=== PATIENT | female | born 1990 | race Caucasian/White ===

== ENCOUNTER → 2017-03-26 | Outpatient (CLI) | payer BC, OTHER ==
[2017-03-26 08:37] LABS: CH 30.4; HCT 38.8 % (34.0-46.0); HDW 2.34; HGB 12.5 gm/dL (11.4-16.0); MCH 29.8 pg (25.0-35.0); MCHC 32.2 g/dL (31.0-37.0); MCV 92.6 fL (80.0-100.0); Mean Platelet Volume 9.1; RBC 4.18 m/uL (3.80-5.40); WBC 9.6 k/uL (3.8-10.6)
[2017-03-26 08:55] LABS: Glucose 81 mg/dL (74-99); Non-African American GFR(MDRD) >60 (>60 ml/min/1.73 sqM)
[2017-03-26 09:24] LABS: Hepatitis B Surface Ag Index 0.05
[2017-03-26 16:39] LABS: Treponemal Ab Non-Reactive (Non-Reactive)
== END | disposition home or self-care (01) ==
LOC: LABWHC1 07:29
PROVIDERS: ATTEND Obstetrics & Gynecology
DX: Z34.01 Encounter for supervision of normal first pregnancy, first trimester (principal); R53.83 Other fatigue
CPT/HCPCS: 36415; 82565; 82947; 85027; 86762; 86780; 86850; 86900; 86901; 87340; 87390

== ENCOUNTER 2017-10-19 08:53 | Inpatient (IN) | payer OTHER ==
--- NOTE | 2017-10-23 06:02 | P.HPOB ---
History of Present Illness H&P Date: 10/23/17 Chief Complaint: Patient is presenting for postdates induction of labor. This patient is a pleasant 27-year-old 1 para 0 female estimated date of confinement 10/19/2017 estimated gestational age 40-4/7 weeks gestation which is changed by a 10 week ultrasound who presents to labor and delivery for postdates induction of labor. Patient's care has been uncomplicated. Review of Systems Constitutional: Denies chills, Denies fever Gastrointestinal: Reports heartburn Genitourinary: Reports Menstruation: Reports amenorrhea Past Medical History Past Medical History: No Reported History History of Any Multi-Drug Resistant Organisms: None Reported Past Surgical History: Tonsillectomy Past Anesthesia/Blood Transfusion Reactions: No Reported Reaction Past Psychological History: No Psychological Hx Reported Smoking Status: Never smoker Past Alcohol Use History: None Reported Past Drug Use History: None Reported Medications and Allergies Home Medications Medication Instructions Recorded Confirmed Type Pnv No.95/Ferrous Fum/Folic AC 1 tab 10/23/17 History [ Multivitamin Tablet] Allergies Allergy/AdvReac Type Severity Reaction Status Date / Time cefpodoxime [From Vantin] AdvReac Rash/Hives Verified 10/23/17 06:00 Penicillins AdvReac Rash/Hives Verified 10/23/17 05:59 Sulfa (Sulfonamide AdvReac Rash/Hives Verified 10/23/17 06:00 Antibiotics) Exam - OBG Physical Exam Abdomen: bowel sounds normal, no diffuse tenderness, no bruit present, no guarding noted, no hepatomegaly, no splenomegaly, no mass Vulva: both: normal Vagina: normal moisture, no discharge Cervix: no lesion (Cervix in the office is 2 cm dilated 50% effaced and soft.), no discharge Uterus: enlarged (Fundal height was 39 cm.) Results blood work shows she is A positive, rubella immune, RPR nonreactive, hepatitis B negative, HIV nonreactive, ultrasounds have been normal, Glucola was normal, group B strep was negative. Assessment and Plan Assessment: This is a pleasant 27-year-old 1 para 0 female 40-4/7 weeks gestation who is admitted to labor and delivery for postdates induction of labor. Plan at this time is induction of labor and anticipate vaginal delivery. (1) Post-dates Current Visit: Yes Status: Acute Code(s): O48.0 - POST-TERM SNOMED Code(s): 82264148 (2) Elective induction of labor planned Current Visit: Yes Status: Acute Code(s): SQE5902 - SNOMED Code(s): 664932139
[2017-10-23] MEDS ORDERED: OXYTOCIN 20 UNITS/1000 ML NS 1,000 ML IV SCH ×2 (06:04→16:26)
[2017-10-23] MEDS ORDERED: OXYTOCIN 10 UNIT/ML 1 ML VIAL IM PRN (06:04)
[2017-10-23] MEDS ORDERED: METHYLERGONOVINE 0.2 MG/ML 1 ML AMP IM PRN (06:04)
[2017-10-23] MEDS ORDERED: LIDOCAINE 1% (PF) 10 MG/ML (30 ML SDV) SQ PRN (06:04)
[2017-10-23] MEDS ORDERED: TERBUTALINE 1 MG/ML VIAL SQ PRN (06:04)
[2017-10-23] MEDS ORDERED: CARBOPROST TROMETHAMINE 250 MCG/ML 1 ML AMP IM PRN (06:04)
[2017-10-23 06:21] VITALS: BMI 31.1
[2017-10-23] MEDS: LACTATED RINGERS 1,000 ML IV SCH ×3 (06:24→16:59)
[2017-10-23 06:29] LABS: Basophils # (A) 0.1 k/uL (0-0.2); Basophils % (A) 1 %; Eosinophils # (A) 0.2 k/uL (0-0.7); Eosinophils % (A) 2 %; HCT 39.2 % (34.0-46.0); HGB 13.5 gm/dL (11.4-16.0); Lymphocytes # (A) 2.7 k/uL (1.0-4.8); Lymphocytes % (A) 31 %; MCH 30.7 pg (25.0-35.0); MCHC 34.4 g/dL (31.0-37.0); Mean Platelet Volume 10.8; Monocytes # (A) 0.5 k/uL (0-1.0); Monocytes % (A) 6 %; Neutrophils % (A) 58 %; Platelet Count 165 k/uL (150-450); RBC 4.39 m/uL (3.80-5.40); WBC 8.7 k/uL (3.8-10.6)
[2017-10-23 06:54] LABS: MCV 89.5 fL (80.0-100.0)
[2017-10-23 07:12] LABS: Large Platelets Present
[2017-10-23] MEDS ORDERED: SODIUM CHLORIDE 0.9% 100 ML BAG ONE (09:01)
[2017-10-23] MEDS ORDERED: fentaNYL (PF) 50 MCG/ML 5 ML AMP ONE (09:01)
[2017-10-23] MEDS ORDERED: BUPIVACAINE (PF) 0.25% 30 ML VIAL ONE (09:01)
[2017-10-23] MEDS ORDERED: BUTORPHANOL 1 MG/ML 1 ML VIAL IV PRN (15:36)
[2017-10-23] MEDS ORDERED: Acetaminophen-Codeine 300-30mg TAB PO PRN ×2 (16:18)
[2017-10-23] MEDS ORDERED: BISACODYL 10 MG SUPP RECTAL PRN (16:26)
[2017-10-23] MEDS ORDERED: diphenhydrAMINE 25 MG CAP PO PRN (16:26)
[2017-10-23] MEDS ORDERED: LANOLIN CREAM 5 GM TUBE TOPICAL PRN (16:26)
[2017-10-23] MEDS ORDERED: SIMETHICONE 80 MG CHEWABLE PO PRN (16:26)
[2017-10-23] MEDS ORDERED: ZOLPIDEM 5 MG TAB PO PRN (16:26)
[2017-10-23] MEDS ORDERED: BENZOCAINE/MENTHOL SPRAY 1 GM/SPRAY AEROSOL TOPICAL PRN (16:26)
[2017-10-23] MEDS ORDERED: WITCH HAZEL 1 EACH MED..PAD TOPICAL PRN (16:26)
[2017-10-23] MEDS ORDERED: HYDROCORTISONE 2.5% RECTAL CREAM 30 GM TUBE RECTAL PRN (16:26)
[2017-10-23] MEDS ORDERED: diphenhydrAMINE 50 MG/ML 1 ML VIAL IVP PRN (16:26)
[2017-10-23] MEDS: IBUPROFEN 600 MG TAB PO PRN (16:33)
--- NOTE | 2017-10-23 16:34 | P.PROBDLV ---
Vaginal Delivery Note - . Vaginal Delivery Note: Normal vaginal delivery viable female Apgars are 9 and 9 delivery time is 1536 hrs. Please see dictated H&P for intimate details of this patient's admission. Brief summary this is a pleasant 27-year-old 1 para 0 female 40-4/7 weeks gestation who is admitted to labor and delivery initially for requested induction of labor however the patient was having regular painful contractions this morning on arrival. Patient is 2 cm the office in 3 cm here on admission. She does have artificial rupture membranes for moderate meconium-stained fluid. heart tones are reassuring. Labor is augmented with Pitocin per protocol. Patient progresses and does get an epidural for pain control. Patient gets to complete. She is having quite a bit of back pain and therefore' s portion of the hands and knees position. Patient does progress and pushes the head to the perineum. At this time the posterior perineum is supported and we have controlled delivery as best as possible infant's head over the perineum. Mouth and nares are bulb suctioned. There is no evidence of a nuchal cord. With gentle downward traction we have delivery the anterior and posterior shoulder and the rest this 's body with maternal effort. Infant has spontaneous respirations and cry and grossly appears normal anesthesia was present for delivery secondary to meconium but no suction was necessary. After delivery of the the umbilical cord is doubly clamped and cut and appears to be trivascular. Placenta is then spontaneously delivered intact. At this time inspection of the perineum shows 2 vaginal sulcus tears right and left. She also has a second-degree posterior perineal laceration. Patient's quite uncomfortable and therefore is given 1 mg of Stadol this time further repair. I tried to cultures best possible through the repair but the sulcus tears were repaired with 3-0 Vicryl usual fashion. The area bleeding on the right which is sutured in her ruptured with a 3-0 Vicryl for good hemostasis. Multiple stitches are placed for hemostasis as well. Final reapproximation looks good. Estimate blood loss is approximately 500 mL. All counts are correct 3. There are no complications. Infant and mother are stable delivery room.
[2017-10-23] MEDS ORDERED: SUCCINYLCHOLINE CHLORIDE 100 MG/5 ML SYR IV ONE (17:45)
[2017-10-23] MEDS ORDERED: fentaNYL (PF) 50 MCG/ML 2 ML AMP ONE (17:45)
[2017-10-23] MEDS ORDERED: PROPOFOL 10 MG/ML 20 ML VIAL IV ONE (17:45)
[2017-10-23] MEDS ORDERED: ACETAMINOPHEN IV (For NPO) 1,000 MG/100 ML VIAL ONE (17:45)
[2017-10-23] MEDS ORDERED: OXYTOCIN 10 UNIT/ML 1 ML VIAL ONE (17:45)
[2017-10-23] MEDS ORDERED: ONDANSETRON 4 MG/2 ML VIAL ONE (17:45)
[2017-10-23 18:17] LABS: Basophils % (A) 0 %; Eosinophils % (A) 0 %; HCT 29.7 % (34.0-46.0); Lymphocytes # (A) 1.1 k/uL (1.0-4.8); Lymphocytes % (A) 7 %; MCH 30.4 pg (25.0-35.0); MCHC 33.8 g/dL (31.0-37.0); Mean Platelet Volume 10.8; Monocytes # (A) 0.9 k/uL (0-1.0); Monocytes % (A) 6 %; Neutrophils # (A) 14.3 k/uL (1.3-7.7); Neutrophils % (A) 87 %; Platelet Count 149 k/uL (150-450); RDW 13.1 % (11.5-15.5); WBC 16.5 k/uL (3.8-10.6)
[2017-10-23 18:34] LABS: HGB 10.1 gm/dL (11.4-16.0)
--- NOTE | 2017-10-23 18:46 | P.OP ---
Date of Procedure: 10/23/17 Preoperative Diagnosis: Excessive perineal pain status post vaginal delivery Postoperative Diagnosis: Same Procedure(s) Performed: Examination under anesthesia, reapproximation of minor perineal laceration. Anesthesia: GETA Surgeon: Christiano Kenny Estimated Blood Loss (ml): 50 Urine output (ml): 400 Pathology: none sent Condition: stable Disposition: floor Indications for Procedure: Please see dictated delivery note from earlier this evening. Brief summary is a pleasant 27-year-old 1 para 0 female status post vaginal delivery earlier this afternoon. Patient deliveries complicated by bilateral vaginal sulcus tears. Patient is very uncomfortable during the entire repair process however it was felt that good hemostasis was achieved. Approximately 1-1/2 hours after delivery however patient began developing severe vaginal perineal pain with rectal pressure and some slight increased bleeding. I attempted to examine the patient and I also attempted to place a catheter because she had not urinated since about 2:00 today and unfortunately patient was so uncomfortable she was unable to tolerate this. Due to my concern for possible expanding hematoma or bleeding laceration that was not noticed I recommended that we proceed with examination under anesthesia and she wished to proceed. Patient understands this surgery and its risks. Operative Findings: Patient had no evidence of a vulvar or perineal hematoma. Rectal exam showed no evidence of defects or palpable hematoma. She had some superficial perineal lacerations that I did notice under anesthesia. There is no active bleeding. Description of Procedure: This patient is taken to the operating room where she subsequently goes under general endotracheal anesthesia without incident. With an adequate level of anesthesia was placed in dorsal lithotomy position. She has a vaginal perineal prep and drape. I placed a Mejia catheter to straight drain for approximately 400 mL of clear urine. With this done I then placed a speculum in the vagina visualized the entire vagina and vaginal mucosa. There is to half dollar size clots at the cervical os but these were consistent with normal clots from delivery. I could not find any active bleeding. I cannot find any expanding hematoma or significant hematoma. I watched this for approximately 5 or 10 minutes and did multiple close examinations without evidence of any concerns. I then did a rectal exam as well and there is no evidence of any impinging hematoma. There is no defects. This patient had a second-degree laceration with bilateral vaginal sulcus tears which appeared to be hemostatic. At this point after prolonged observation I feel there is evidence of ongoing bleeding or hematoma formation. There were to superficial areas on the labia that I did suture with 30 and 4-0 Vicryl just to reapproximate. At this point all counts are correct 3. There are no complications. Patient was awakened from anesthesia and taken to her birthing suite in satisfactory condition. Of note her pain level upon arrival into the delivery room was now 4 previously was an 8. I'm going to leave the Mejia catheter indwelling and close observation. CBC shows a hemoglobin of 10.1 which is consistent with blood loss she had from delivery. I did give her 1 dose of IV antibiotics.
[2017-10-23] MEDS: SENNOSIDES-DOCUSATE SODIUM 1 EACH TAB PO SCH ×2 (19:24→20:32)
[2017-10-24] MEDS: IBUPROFEN 600 MG TAB PO PRN ×3 (02:18→18:39)
--- NOTE | 2017-10-24 06:51 | P.PNOBGVD ---
Subjective - Subjective Patient reports: Reports appetite normal, Reports voiding normally, Reports pain well controlled, Reports ambulating normally : doing well Objective - Latest Vital Signs Latest vital signs: Vital Signs Temp Pulse Resp BP Pulse Ox 10/24/17 04:00 97.8 F 77 14 94/61 10/24/17 00:00 98.3 F 86 14 121/79 98 10/23/17 20:32 97.3 F L 81 14 124/72 98 10/23/17 20:02 97.2 F L 90 16 126/81 100 10/23/17 19:32 97.3 F L 83 16 132/87 100 10/23/17 19:17 68 16 110/62 100 10/23/17 19:02 67 16 108/62 100 10/23/17 18:47 97.5 F L 79 16 111/64 100 10/23/17 18:29 93 16 123/63 91 L 10/23/17 17:24 99.7 F H 97 18 123/68 10/23/17 16:54 102 H 18 126/71 10/23/17 16:39 100 18 136/75 10/23/17 16:24 111 H 18 132/66 10/23/17 16:09 114 H 18 142/69 10/23/17 15:54 126 H 20 160/72 Intake and Output 10/23/17 10/23/17 10/24/17 14:59 22:59 06:59 Intake Total 1000 600 Output Total 550 1400 2200 Balance -550 -400 -1600 Intake: IV 900 Intake, IV Titration 600 Amount Oxytocin 20 Units/1000 ml 600 Ns 1,000 ml @ Per Protocol IV .Q0M [facility] Rx#: [id number] Oral 100 Output: Urine 612 450 6357 Estimated Blood Loss 1050 Other: Voiding Method Indwelling Catheter Indwelling Catheter - Exam Lungs: bilateral: normal Chest: Normal S1, Normal S2 Extremities: Present: normal Abdomen: Present: normal appearance, soft Uterus: Present: normal, firm - Labs Labs: Abnormal Lab Results - Last 24 Hours (Table) 10/23/17 Range/Units 18:07 WBC 16.5 H (3.8-10.6) k/uL RBC 3.30 L (3.80-5.40) m/uL Hgb 10.1 L D (11.4-16.0) gm/dL Hct 29.7 L (34.0-46.0) % Plt Count 149 L (150-450) k/uL Neutrophils # 14.3 H (1.3-7.7) k/uL Assessment and Plan Assessment: Patient is resting without new complaints. She feels 10 times better this morning. Catheter is removed and she had 2200 mL of urine. Inspection of her abdomen shows be soft with normal uterine tenderness. The perineal area shows no evidence of swelling or hematoma. CBC yesterday showed hemoglobin 10.1 I will repeat today although patient is hemodynamically stable with normal vital signs. Plan is to continue routine care, discontinue her catheter, and check a CBC. Most likely discharge home tomorrow. (1) Post-dates Current Visit: Yes Status: Acute Code(s): O48.0 - POST-TERM SNOMED Code(s): 53037578 (2) Elective induction of labor planned Current Visit: Yes Status: Acute Code(s): LMN2541 - SNOMED Code(s): 164041585
[2017-10-24] MEDS: SENNOSIDES-DOCUSATE SODIUM 1 EACH TAB PO SCH ×2 (07:53→20:02)
[2017-10-24] MEDS: ACETAMINOPHEN TAB 325 MG TAB PO PRN ×3 (07:53→23:34)
[2017-10-24 09:41] LABS: MCH 30.9 pg (25.0-35.0); MCHC 33.8 g/dL (31.0-37.0); MCV 91.5 fL (80.0-100.0); Mean Platelet Volume 11.8; Platelet Count 120 k/uL (150-450); RBC 2.62 m/uL (3.80-5.40); RDW 13.4 % (11.5-15.5); WBC 12.5 k/uL (3.8-10.6)
[2017-10-24 09:50] LABS: HGB 8.1 gm/dL (11.4-16.0)
[2017-10-24 10:24] LABS: Band Neutrophils % 2 %; Eosinophils # (M) 0.38 k/uL (0-0.7); Lymphocytes # (M) 2.38 k/uL (1.0-4.8); Metamyelocytes # (M) 0.13 k/uL (0); Metamyelocytes % 1 %; Monocytes # (M) 0.38 k/uL (0-1.0); Myelocytes # (M) 0.38 k/uL (0); Myelocytes % 3 %; Neutrophils % (M) 72 %; Nucleated Red Blood Cells 0 /100 WBC (0-0); Total Cells Counted 200
[2017-10-24 10:25] LABS: Poikilocytosis (M) Present; Toxic Granulation Present
[2017-10-24] MEDS ORDERED: IRON AG/C/B12/CA/SUC.ACID/STOM 1 EACH TAB PO SCH (10:30)
[2017-10-25] MEDS: IBUPROFEN 600 MG TAB PO PRN ×2 (04:05→09:03)
--- NOTE | 2017-10-25 06:47 | P.PNOBGVD ---
Subjective - Subjective Patient reports: Reports appetite normal, Reports voiding normally, Reports pain well controlled, Reports ambulating normally : doing well Objective - Latest Vital Signs Latest vital signs: Vital Signs Temp Pulse Resp BP 10/25/17 00:00 98.1 F 72 14 134/71 10/24/17 16:00 98.1 F 85 16 112/60 10/24/17 08:00 98.2 F 95 18 113/72 Intake and Output 10/24/17 10/24/17 10/25/17 14:59 22:59 06:59 Intake Total 1200 Output Total 500 Balance -500 1200 Intake: Oral 1200 Output: Urine 500 Other: # Voids 1 3 2 # Bowel Movements 0 - Exam Lungs: bilateral: normal Chest: Normal S1, Normal S2 Extremities: Present: normal Abdomen: Present: normal appearance, soft Uterus: Present: normal, firm - Labs Labs: Abnormal Lab Results - Last 24 Hours (Table) 10/24/17 Range/Units 09:10 WBC 12.5 H (3.8-10.6) k/uL RBC 2.62 L (3.80-5.40) m/uL Hgb 8.1 L D (11.4-16.0) gm/dL Hct 24.0 L (34.0-46.0) % Plt Count 120 L (150-450) k/uL Neutrophils # (Manual) 9.20 H (1.3-7.7) k/uL Metamyelocytes # (Man) 0.13 H (0) k/uL Myelocytes # (Manual) 0.38 H (0) k/uL Assessment and Plan Assessment: day #2. Patient is feeling well and resting without complaints. Vital signs are stable and she is afebrile. Uterus is firm nontender and she is having normal lochia. I impression this patient is doing very well was felt be stable for discharge home. I did cancel her CBC she is feeling so well and no bleeding repeat this as an outpatient. (1) Post-dates Current Visit: Yes Status: Acute Code(s): O48.0 - POST-TERM SNOMED Code(s): 98218335 (2) Elective induction of labor planned Current Visit: Yes Status: Acute Code(s): KLY7544 - SNOMED Code(s): 208513583
--- NOTE | 2017-10-25 06:53 | P.DS ---
Providers Date of admission: 10/23/17 05:47 Expected date of discharge: 10/25/17 Attending physician: Christiano Kenny Primary care physician: Shanon Tony - Discharge Diagnosis(es) (1) Post-dates Current Visit: Yes Status: Acute (2) Elective induction of labor planned Current Visit: Yes Status: Acute Hospital Course: Please see dictated H&P for intimate details of this patient's admission. Brief summary this pleasant 27-year-old 1 para 0 female 40-4/7 weeks gestation admitted to labor and delivery initially for postdates induction found to be in early labor. Patient goes on to have a vaginal delivery viable female infant. Please see dictated delivery note. she did have some excessive pain and had an examination under anesthesia which did not show any source of this pain. However the pain did defervesce immediately thereafter. she was anemic to a hemoglobin of 8 however this was thought to be secondary to blood from delivery. By hemorrhage 2 patient is doing excellent felt be stable for discharge home follow up with me in the office. Procedures: Normal vaginal delivery., Examination under anesthesia. Patient Condition at Discharge: Good Plan - Discharge Summary New Discharge Prescriptions: New Acetaminophen-Codeine 300-30mg [Tylenol w/codeine #3] 1 each PO Q4HR PRN #30 tab PRN Reason: Pain Ibuprofen [Motrin] 600 mg PO Q6HR PRN #40 tab PRN Reason: Mild Pain Or Fever >= 100.5 Iron Ag/C/B12/Ca/Suc.acid/Stom [Chromagen LF] 1 each PO DAILY@1200 #30 tab No Action Pnv No.95/Ferrous Fum/Folic AC [ Multivitamin Tablet] 1 tab PO DAILY Discharge Medication List Pnv No.95/Ferrous Fum/Folic AC [ Multivitamin Tablet] 1 tab PO DAILY [History] Acetaminophen-Codeine 300-30mg [Tylenol w/codeine #3] 1 each PO Q4HR PRN #30 tab 10/25/17 [Rx] Ibuprofen [Motrin] 600 mg PO Q6HR PRN #40 tab 10/25/17 [Rx] Iron Ag/C/B12/Ca/Suc.acid/Stom [Chromagen LF] 1 each PO DAILY@1200 #30 tab 10/25 [Rx] Follow up Appointment(s)/Referral(s): Christiano Kenny MD [STAFF PHYSICIAN] - 12/04/17 10:30 am Patient Instructions/Handouts: Vaginal Delivery (DC) Activity/Diet/Wound Care/Special Instructions: No intercourse or anything per vagina. Please call if excessive vaginal bleeding, abdominal pain, and/or fever, and/or chills. Discharge Disposition: HOME SELF-CARE
[2017-10-25] MEDS: SENNOSIDES-DOCUSATE SODIUM 1 EACH TAB PO SCH (09:04)
[2017-10-25 09:09] VITALS: BP 123/71; PULSE 78; RESP 18; TEMP 98.5
== END 2017-10-25 14:00 | disposition home or self-care (01) | DRG 774 ==
LOC: 4FBP 10-23 05:47
PROVIDERS: ADMIT Obstetrics & Gynecology; ATTEND Obstetrics & Gynecology
PROC: 10E0XZZ Delivery of Products of Conception, External Approach (ICD-10-PCS; principal; 2017-10-23 17:41)
PROC: 10907ZC Drainage of Amniotic Fluid, Therapeutic from Products of Conception, Via Natural or Artificial Opening (ICD-10-PCS; principal; 2017-10-23 17:41)
PROC: 3E0R3NZ Introduction of Analgesics, Hypnotics, Sedatives into Spinal Canal, Percutaneous Approach (ICD-10-PCS; principal; 2017-10-23 17:41)
PROC: 0KQM0ZZ Repair Perineum Muscle, Open Approach (ICD-10-PCS; principal; 2017-10-23 17:41)
PROC: 00HU33Z Insertion of Infusion Device into Spinal Canal, Percutaneous Approach (ICD-10-PCS; principal; 2017-10-23 17:41)
DX: O48.0 Post-term pregnancy (principal); O72.1 Other immediate postpartum hemorrhage; D62 Acute posthemorrhagic anemia; O77.0 Labor and delivery complicated by meconium in amniotic fluid; O70.1 Second degree perineal laceration during delivery; O90.81 Anemia of the puerperium; Z37.0 Single live birth; Z3A.40 40 weeks gestation of pregnancy; Z88.0 Allergy status to penicillin; Z88.1 Allergy status to other antibiotic agents
CPT/HCPCS: 85025; 88307

== ENCOUNTER → 2019-05-21 | Outpatient (CLI) | payer BC ==
[2019-05-21 12:27] LABS: HCT 35.7 % (34.0-46.0); HGB 12.1 gm/dL (11.4-16.0); MCH 30.3 pg (25.0-35.0); MCHC 33.7 g/dL (31.0-37.0); MCV 89.7 fL (80.0-100.0); Mean Platelet Volume 8.1; Platelet Count 181 k/uL (150-450); RBC 3.98 m/uL (3.80-5.40); RDW 12.7 % (11.5-15.5); WBC 7.6 k/uL (3.8-10.6)
[2019-05-21 19:39] LABS: African American GFR (CKD) 145.8 (60.0-200.0)
[2019-05-21 20:05] LABS: Hepatitis B Surface Antigen Non-Reactive (Non-Reactive)
[2019-05-21 21:20] LABS: HIV 1 AB Non-Reactive (Non-Reactive); HIV 2 AB Non-Reactive (Non-Reactive); HIV AB P24 Non-Reactive (Non-Reactive); HIV P24 AG Non-Reactive (Non-Reactive)
== END | disposition home or self-care (01) ==
LOC: LABWHC1 10:58
PROVIDERS: ATTEND Obstetrics & Gynecology
DX: Z34.81 Encounter for supervision of other normal pregnancy, first trimester (principal)
CPT/HCPCS: 36415; 82565; 82947; 85027; 86762; 86780; 86850; 86900; 86901; 87340; 87390

== ENCOUNTER → 2019-09-10 | Outpatient (CLI) | payer OTHER ==
[2019-09-10 10:51] LABS: HCT 35.1 % (34.0-46.0); HGB 11.2 gm/dL (11.4-16.0); MCH 29.8 pg (25.0-35.0); MCHC 31.9 g/dL (31.0-37.0); MCV 93.4 fL (80.0-100.0); Mean Platelet Volume 9.7; Platelet Count 134 k/uL (150-450); RBC 3.76 m/uL (3.80-5.40); RDW 13.4 % (11.5-15.5); WBC 6.8 k/uL (3.8-10.6)
== END | disposition home or self-care (01) ==
LOC: LABWHC1 08:55
PROVIDERS: ATTEND Obstetrics & Gynecology
DX: Z34.82 Encounter for supervision of other normal pregnancy, second trimester (principal)
CPT/HCPCS: 36415; 82950; 85027

== ENCOUNTER 2019-12-19 18:58 | Inpatient (IN) | payer OTHER ==
[2019-12-19] MEDS ORDERED: CARBOPROST TROMETHAMINE 250 MCG/ML 1 ML AMP IM PRN (20:34)
[2019-12-19] MEDS ORDERED: TERBUTALINE 1 MG/ML VIAL SQ PRN (20:34)
[2019-12-19] MEDS ORDERED: METHYLERGONOVINE 0.2 MG/ML 1 ML AMP IM PRN (20:34)
[2019-12-19] MEDS ORDERED: OXYTOCIN 10 UNIT/ML 1 ML VIAL IM PRN (20:34)
[2019-12-19] MEDS ORDERED: LIDOCAINE 0.5% (PF) 5 MG/ML (50 ML SDV) SQ PRN (20:34)
[2019-12-19] MEDS ORDERED: BUTORPHANOL 1 MG/ML 1 ML VIAL IV PRN ×2 (20:42→21:06)
[2019-12-19] MEDS ORDERED: LACTATED RINGERS 1,000 ML IV SCH (20:45)
--- NOTE | 2019-12-19 21:13 | P.HPOB ---
History of Present Illness H&P Date: 12/19/19 Chief Complaint: Contractions This is a 29-year-old female 2 para 1 with an estimated date of confinement of 12/16/2019, estimated gestational age of 40-3/7 weeks, who presents to labor and delivery with complaints of contractions that began at 7 AM this morning that became stronger this evening. care has been with Dr. Kenny and has been uncomplicated per patient. labs: Random glucose-79 Hepatitis B surface antigen-nonreactive Rubella-immune Syphilis antibody-negative nonreactive HIV-nonreactive Hemoglobin-12.1 Blood type-A+ Antibody screen-negative One hour Glucola-98 Group B streptococcus-negative Obstetrical history: . History of 1 vaginal delivery at term with no complications. Social history: She is . 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 Review of Systems Constitutional: Denies chills, Denies fever Eyes: denies blurred vision, denies pain Ears, nose, mouth and throat: Denies headache, Denies sore throat Cardiovascular: Denies chest pain, Denies shortness of breath Respiratory: Denies cough Gastrointestinal: Reports abdominal pain (Contractions) Genitourinary: Reports pelvic pain, Reports Musculoskeletal: Reports low back pain Integumentary: Denies pruritus, Denies rash Neurological: Denies numbness, Denies weakness Psychiatric: Denies anxiety, Denies depression Past Medical History Past Medical History: No Reported History History of Any Multi-Drug Resistant Organisms: None Reported Past Surgical History: Tonsillectomy Past Anesthesia/Blood Transfusion Reactions: No Reported Reaction Past Psychological History: No Psychological Hx Reported Smoking Status: Never smoker Past Alcohol Use History: None Reported Past Drug Use History: None Reported - Past Family History Mother Family Medical History: No Reported History Medications and Allergies Home Medications Medication Instructions Recorded Confirmed Type Pnv No.95/Ferrous Fum/Folic AC 1 tab PO DAILY 10/23/17 12/19/19 History [ Multivitamin Tablet] Allergies Allergy/AdvReac Type Severity Reaction Status Date / Time cefpodoxime [From Vantin] AdvReac Rash/Hives Verified 12/19/19 19:15 Penicillins AdvReac Rash/Hives Verified 12/19/19 19:15 Sulfa (Sulfonamide AdvReac Rash/Hives Verified 12/19/19 19:15 Antibiotics) Exam Osteopathic Statement: *. No significant issues noted on an osteopathic structural exam other than those noted in the History and Physical/Consult. Vital Signs Temp Pulse Resp BP Pulse Ox 12/19/19 19:05 97.3 F L 86 16 123/82 97 Intake and Output 12/19/19 12/19/19 12/19/19 06:59 14:59 22:59 Other: Weight 85.275 kg HEENT: Within normal limits Heart: Regular rate and rhythm Lungs: Clear to auscultation bilaterally Abdomen: Cervix: On admission to triage was 4 cm and she did make change to 6 cm within 1 hour. Currently exam is 8 cm/100%/-2 station with bulging bag of water. Artificial rupture membranes is carried out with clear fluid noted. heart tones: Category 1. Contractions: Every 2-3 minutes Extremities: Negative Homans Assessment and Plan (1) 40 weeks gestation of Current Visit: Yes Status: Acute Code(s): Z3A.40 - 40 WEEKS GESTATION OF SNOMED Code(s): 77451295 Plan: Anticipate spontaneous vaginal delivery. Expectant management. Will give a h pat dose of Stadol for pain control.
[2019-12-19 21:24] LABS: Basophils # (A) 0.1 k/uL (0-0.2); Basophils % (A) 1 %; Eosinophils # (A) 0.4 k/uL (0-0.7); Eosinophils % (A) 4 %; HCT 38.5 % (34.0-46.0); HGB 12.3 gm/dL (11.4-16.0); Lymphocytes # (A) 2.2 k/uL (1.0-4.8); Lymphocytes % (A) 19 %; MCH 30.1 pg (25.0-35.0); MCV 93.9 fL (80.0-100.0); Mean Platelet Volume 11.1; Monocytes # (A) 0.6 k/uL (0-1.0); Monocytes % (A) 5 %; Neutrophils # (A) 8.2 k/uL (1.3-7.7); Neutrophils % (A) 68 %; Platelet Count 136 k/uL (150-450); WBC 11.9 k/uL (3.8-10.6)
[2019-12-19] MEDS ORDERED: OXYTOCIN 30 UNITS/500 ML NS 30 UNIT in SALINE 1 500ML.BAG IV SCH (21:45)
--- NOTE | 2019-12-19 22:34 | P.PROBDLV ---
Vaginal Delivery Note - . Vaginal Delivery Note: The patient progressed to complete dilation after oxytocin augmentation of labor. She did receive 1 dose of Stadol. Once reaching complete, she began pushing. Infant's head came to a crown. With one further push, the infant's head delivered across the perineum followed by the anterior shoulder and quickly followed by the body. was placed on mother's abdomen and then nose and mouth were bulb suctioned. Cord was clamped and cut and infant was taken to [facility] for evaluation. A viable female was noted with scores of 9 at 1 minute and 9 at 5 minutes. Infant weight was 7 lbs. 8 oz. Placenta delivered shortly thereafter, intact, with a three-vessel cord. Uterus contracted well after oxytocin was given and uterine massage was carried out. Inspection of the perineum revealed a second-degree perineal laceration with a V-shaped extension into the vagina. This area was anesthetized with 1% lidocaine and then sutured with 3-0 and 2-0 Vicryl suture in the usual multilayer fashion. Estimated blood loss is approximately 300 mL's. Both mother and are in stable condition.
[2019-12-19] MEDS ORDERED: SIMETHICONE 80 MG CHEWABLE PO PRN (22:49)
[2019-12-19] MEDS ORDERED: LANOLIN CREAM 5 GM TUBE TOPICAL PRN (22:49)
[2019-12-19] MEDS ORDERED: diphenhydrAMINE 50 MG/ML 1 ML VIAL IVP PRN ×2 (22:49)
[2019-12-19] MEDS ORDERED: BENZOCAINE/MENTHOL SPRAY 1 GM/SPRAY AEROSOL TOPICAL PRN (22:49)
[2019-12-19] MEDS ORDERED: diphenhydrAMINE 25 MG CAP PO PRN (22:49)
[2019-12-19] MEDS ORDERED: ZOLPIDEM 5 MG TAB PO PRN (22:49)
[2019-12-19] MEDS ORDERED: diphenhydrAMINE 50 MG CAP PO PRN (22:49)
[2019-12-19] MEDS ORDERED: OXYTOCIN 20 UNITS/1000 ML NS 1,000 ML IV SCH (22:49)
[2019-12-19] MEDS ORDERED: WITCH HAZEL 1 EACH MED..PAD TOPICAL PRN (22:49)
[2019-12-19] MEDS ORDERED: HYDROCORTISONE 2.5% RECTAL CREAM 30 GM TUBE RECTAL PRN (22:49)
[2019-12-19] MEDS: IBUPROFEN 600 MG TAB PO PRN (22:55)
[2019-12-20 00:11] VITALS: RESP 16
[2019-12-20] MEDS: ACETAMINOPHEN TAB 325 MG TAB PO PRN ×2 (00:19→12:46)
[2019-12-20] MEDS: IBUPROFEN 600 MG TAB PO PRN ×3 (04:21→18:40)
[2019-12-20 05:38] LABS: HCT 29.9 % (34.0-46.0); MCH 31.1 pg (25.0-35.0); MCHC 33.2 g/dL (31.0-37.0); MCV 93.6 fL (80.0-100.0); Mean Platelet Volume 12.7; Platelet Count 152 k/uL (150-450); RBC 3.19 m/uL (3.80-5.40); RDW 13.2 % (11.5-15.5); WBC 12.7 k/uL (3.8-10.6)
[2019-12-20 05:44] LABS: HGB 9.9 gm/dL (11.4-16.0)
[2019-12-20 06:04] LABS: Band Neutrophils % 3 %; Eosinophils # (M) 0.25 k/uL (0-0.7); Large Platelets Present; Lymphocytes # (M) 1.78 k/uL (1.0-4.8); Monocytes # (M) 0.89 k/uL (0-1.0); Neutrophils % (M) 74 %; Nucleated Red Blood Cells 0 /100 WBC (0-0); Total Cells Counted 100
[2019-12-20] MEDS: SENNOSIDES-DOCUSATE SODIUM 1 EACH TAB PO SCH ×2 (10:28→19:39)
--- NOTE | 2019-12-20 15:26 | P.PNOBGVD ---
Subjective - Subjective Principal diagnosis: Status post vaginal delivery day #1 Interval history: Patient is doing well. She is breast-feeding. Lochia is decreasing. Her pain is well-controlled. She does complain of some hemorrhoid pain. Patient reports: Reports appetite normal, Reports voiding normally, Reports pain well controlled, Reports ambulating normally [place]: doing well, nursing well Objective - Latest Vital Signs Latest vital signs: Vital Signs Temp Pulse Resp BP Pulse Ox 12/20/19 10:00 97.7 F 101 H 16 113/74 12/20/19 06:39 97.8 F 88 16 118/71 12/20/19 04:00 97.6 F 67 16 110/64 12/20/19 00:35 96.9 F L 84 16 112/68 12/20/19 00:05 96.9 F L 84 16 115/65 12/19/19 23:35 96.3 F L 84 18 116/66 12/19/19 23:20 96.9 F L 88 18 116/65 12/19/19 23:05 97.3 F L 89 18 116/65 12/19/19 22:50 93 16 115/67 12/19/19 22:35 97.8 F 99 18 120/65 12/19/19 19:05 97.3 F L 86 16 123/82 97 Intake and Output 12/20/19 12/20/19 12/20/19 06:59 14:59 22:59 Other: # Voids 1 - Exam Extremities: Present: normal. Absent: tenderness Abdomen: Present: normal appearance, soft. Absent: distention, tenderness Uterus: Present: normal, firm. Absent: tenderness - Labs Labs: Abnormal Lab Results - Last 24 Hours (Table) 12/19/19 12/20/19 Range/Units 21:08 05:24 WBC 11.9 H 12.7 H (3.8-10.6) k/uL RBC 3.19 L (3.80-5.40) m/uL Hgb 9.9 L D (11.4-16.0) gm/dL Hct 29.9 L (34.0-46.0) % Plt Count 136 L (150-450) k/uL Neutrophils # 8.2 H (1.3-7.7) k/uL Neutrophils # (Manual) 9.70 H (1.3-7.7) k/uL Assessment and Plan Assessment: Status post vaginal delivery day #1 (1) 40 weeks gestation of Current Visit: Yes Status: Acute Code(s): Z3A.40 - 40 WEEKS GESTATION OF SNOMED Code(s): 02959828 Plan: Will continue with care today. Anticipate discharge home tomorrow morning.
--- NOTE | 2019-12-20 15:30 | P.DS ---
Providers Date of admission: 12/19/19 20:20 Expected date of discharge: 12/21/19 Attending physician: Christiano Kenny Primary care physician: Stated None - Discharge Diagnosis(es) (1) 40 weeks gestation of Current Visit: Yes Status: Acute Hospital Course: This is a 29-year-old female 2 para 1 at 40-3/7 weeks who presented for contractions. She was found to be in active labor. She underwent artificial rupture of membranes and some oxytocin augmentation of labor. She did receive 1 dose of Stadol while in labor. She delivered vaginally a viable female infant with scores of 9 at 1 minute and 9 at 5 minutes and weight of 7 lbs. 8 oz. Her course has been essentially uncomplicated. Lochia is decreasing. Pain is well-controlled with ibuprofen. She is breast-feeding well. She does complain of some hemorrhoid pain. Vital signs are stable. Abdomen is soft with fundus firm and nontender. Extremities show negative Homans. Impression is status post vaginal delivery day #1. Plan is to discharge home tomorrow morning. Routine instructions are given. She will be given a prescription for ibuprofen. She is advised to call the office if she has any further questions or concerns prior to her appointment time. She is advised to follow up with Dr. Kenny in the office in 6 weeks. Procedures: Spontaneous vaginal delivery of a viable female on 12/19/2019 Patient Condition at Discharge: Stable Plan - Discharge Summary New Discharge Prescriptions: New Ibuprofen [Motrin] 600 mg PO Q6HR PRN #60 tab PRN Reason: Mild Pain Or Fever >= 100.5 Continue Pnv No.95/Ferrous Fum/Folic AC [ Multivitamin Tablet] 1 tab PO DAILY Discharge Medication List Pnv No.95/Ferrous Fum/Folic AC [ Multivitamin Tablet] 1 tab PO DAILY 10/23/17 [History] Ibuprofen [Motrin] 600 mg PO Q6HR PRN #60 tab 12/20/19 [Rx] Follow up Appointment(s)/Referral(s): Christiano Kenny MD [STAFF PHYSICIAN] - 6 Weeks Activity/Diet/Wound Care/Special Instructions: Instructions 1. Do not begin any exercise program for 3 weeks. 2. Do not resume sexual relations for 3 weeks or longer if uncomfortable. 3. You may take tub baths or showers at any time. 4. You may use tampons if desired after 3 weeks. 5. Keep the area of episiotomy (stitches) clean and dry. 6. If you are not nursing, wear a good fitting, supportive bra during the day and limit fluid intake for at least 1 week to prevent breast engorgement. 7. Call the office, [phone], within the next week to make appointment for your 6 week checkup if it has not already been made. 8. Report any of the following occurrences to the doctor promptly: a. Heavy, excessive bleeding b. Chills, fever c. Burning or frequency of urination d. Pain or redness and breasts if nursing e. Increasing pain or swelling in episiotomy (stitches). In addition to the above instructions, the following additional should be followed: 1. No heavy lifting or straining (exercising) until after 6 week checkup. 2. Keep abdominal incision clean and dry: You may wear a dressing if more comfortable. 3. Make office appointment for 10 days after going home or as instructed by her doctor. Discharge Disposition: HOME SELF-CARE
[2019-12-20 18:51] VITALS: BP 124/83; PULSE 96; TEMP 97.8
== END 2019-12-20 22:50 | disposition home or self-care (01) | DRG 806 ==
LOC: FBPOP 18:58 → 4FBP 20:20
PROVIDERS: ADMIT Obstetrics & Gynecology; ATTEND Obstetrics & Gynecology
PROC: 10E0XZZ Delivery of Products of Conception, External Approach (ICD-10-PCS; principal; 2019-12-19)
PROC: 0KQM0ZZ Repair Perineum Muscle, Open Approach (ICD-10-PCS; 2019-12-19)
PROC: 10907ZC Drainage of Amniotic Fluid, Therapeutic from Products of Conception, Via Natural or Artificial Opening (ICD-10-PCS; 2019-12-19)
DX: O70.1 Second degree perineal laceration during delivery (principal); O22.43 Hemorrhoids in pregnancy, third trimester; Z37.0 Single live birth; Z3A.40 40 weeks gestation of pregnancy; Z79.899 Other long term (current) drug therapy
CPT/HCPCS: 59025; 85025; 86850; 86900; 86901; 99213

== ENCOUNTER → 2020-04-02 | Outpatient (CLI) | payer OTHER | END | disposition home or self-care (01) | LOC: LABWHC1 10:54 | PROVIDERS: ATTEND Family Medicine | DX: R09.81 Nasal congestion (principal); R07.0 Pain in throat; R05 Cough | CPT/HCPCS: U0003; C9803 ==